=== PATIENT | female | born 1960 | race Caucasian/White ===

== ENCOUNTER 2020-05-29 06:12 | Day surgery (SDC) | payer OTHER ==
--- NOTE | 2020-05-23 13:30 | HP ---
Admitting History and Physical - Primary Care Physician PCP: Jen Antoine - Admission Chief Complaint: Left breast cancer History of Present Illness: 52 year old postmenapausal female with strong F/H breast cancer who recenly had screening mammogram which showed architectual distortion left upper outer quadrant. Birad4. US failed to show area of concern but showed left breast stable mass at 12:00 birad2. Stereotactic core bx 03/2020 showed invasive ductal carcinoma ER+/TN+HER2-.Breast MRI showed localized left breast cancer [address] 04/2020stable nodule and resolution of some nodules /scattered emphysema, F/U one year. History Source: Patient Limitations to Obtaining History: No Limitations - Past Medical History Gastrointestinal: Yes: GERD - Past Surgical History Additional Past Surgical History: ocular surgery 04/2020 left breast core bx 2013 fibroadenoma - Smoking History Smoking history: Current every day smoker (one PPD x 40 yrs) Have you smoked in the past 12 months: Yes - Alcohol/Substance Use Hx Alcohol Use: Yes (social) Home Medications - Allergies Allergies/Adverse Reactions: Allergies Allergy/AdvReac Type Severity Reaction Status Date / Time No Known Allergies Allergy Verified 05/01/20 12:10 - Home Medications Home Medications (free text): vitamins and herbal meds Family Medical History Family Hx Cancer: Grandfather (paternal) (CRC 60), Father (pancreatic ca 60) Other Family History: pat aunt breast ca 70. mat aunt x 2 breast ca 50's. mat GM breast ca 90 Physical Examination Constitutional: Yes: Well Nourished Breast(s): Yes: Other (Breast are symmetrical, post bx changes left breast S/P core bx, no palpable mass or adenopthy bilaterally) Problem List - Problems (1) Breast cancer, left breast Problems reviewed: Yes Code(s): C50.912 - MALIGNANT NEOPLASM OF UNSPECIFIED SITE OF LEFT FEMALE BREAST Qualifiers: Estrogen receptor status: positive Patient sex: female Assessment/Plan Left breast wide excision, mammogram needle localization ,sentenel node biopsy ,lymphoscintogram, possible axillary node dissection, intraop Radiation
[2020-05-24 11:34] VITALS: BMI 27.4
[2020-05-29] MEDS ORDERED: MIDAZOLAM HCL 2 MG/2 ML SINGLE DOSE VIAL ONE ×2 (09:20→10:14)
[2020-05-29] MEDS ORDERED: KETOROLAC TROMETHAMINE 30 MG/1 ML VIAL ONE (09:21)
[2020-05-29] MEDS ORDERED: DEXAMETHASONE SOD PHOSPHATE 4 MG/1 ML VIAL ONE (09:21)
[2020-05-29] MEDS ORDERED: PROPOFOL 20 ML ONE ×3 (09:21→15:06)
[2020-05-29] MEDS ORDERED: ONDANSETRON 4 MG/2 ML VIAL ONE ×2 (09:21)
[2020-05-29] MEDS ORDERED: LIDOCAINE HCL/PF 2% SDV 5ML VIAL ONE (10:15)
[2020-05-29] MEDS ORDERED: BUPIVACAINE HCL/PF 0.5% (5MG/ML) 10 ML VIAL ONE (11:54)
[2020-05-29] MEDS ORDERED: ISOSULFAN BLUE 10 MG/ML VIAL SQ ONE (11:54)
[2020-05-29] MEDS ORDERED: LIDOCAINE HCL 1%, 10 MG/ML (20ML VIAL) ONE (11:54)
[2020-05-29] MEDS ORDERED: PHENYLEPHRINE HCL 10 MG/1 ML SINGLE DOSE VIAL ONE (12:31)
[2020-05-29] MEDS ORDERED: ONDANSETRON 4 MG/2 ML VIAL IVPUSH PRN ×2 (14:11→14:47)
[2020-05-29] MEDS ORDERED: KETOROLAC TROMETHAMINE 30 MG/1 ML VIAL IVPUSH PRN (14:11)
[2020-05-29] MEDS ORDERED: DEXTROSE 5%-0.45% SALINE 1,000 ML IV SCH (14:15)
[2020-05-29] MEDS ORDERED: PROMETHAZINE HCL 25 MG/1 ML VIAL IVPUSH PRN (14:47)
[2020-05-29] MEDS ORDERED: oxyCODONE HCL 5 MG TABLET PO PRN ×2 (14:47)
[2020-05-29 16:42] VITALS: BP 118/76; PULSE 80; TEMP 98
--- NOTE | 2020-05-30 11:51 | OP ---
DATE OF OPERATION: 05/29/2020 PREOPERATIVE DIAGNOSIS: Left breast cancer. POSTOPERATIVE DIAGNOSIS: Left breast cancer. PROCEDURE: Post-lumpectomy intraoperative radiation therapy for left breast cancer. ATTENDING SURGEON: Jen Antoine MD CARTOGRAPHY/MAPPING TECHNICIAN/RADIATION ONCOLOGIST: Eitan Ortega MD ANESTHESIA: General. COMPLICATIONS: None. INDICATIONS: The patient is a 59-year-old woman with clinical stage IA T1c N0 M0, well differentiated invasive ductal carcinoma, ER/ME positive, HER-2/benji negative of the left breast, who has elected breast conservation therapy and agrees to proceed with post-lumpectomy intraoperative radiation therapy. OPERATIVE PROCEDURE: Dr. Antoine performed left lumpectomy and sentinel lymph node biopsy which he has dictated. After excision of additional margins, the lumpectomy cavity was prepared and sized for a 4.5-cm diameter spherical applicator which was then placed into the operative cavity at the 2 o'clock aspect of the left breast. The surrounding breast tissues were cinched around the applicator with a Vicryl purse-string suture. I performed a clinical and ultrasound simulation to ensure that the applicator was located within the operative bed with close apposition of the surrounding breast tissues to the surface of the applicator. In addition, adequate distance between the applicator and chest wall and between the applicator and skin was ensured by placement of saline-soaked Ray-Gayle gauze between the skin and breast tissue. Ultrasound measurements confirmed a minimum skin to applicator separation of 2 cm at the 3 o'clock aspect of the applicator. Shielding material was placed over the breast to reduce scatter radiation. The system was double checked with appropriate physics quality assurance monitor body measures. The patient received a total dose of 20 Gy prescribed to 0 mm from the applicator surface using 50-kV x-rays from the Intrabeam source. The total time required for the treatment was 35 minutes 38 seconds at a dose rate of 0.562 Gy per minute. When the treatment was completed, survey of the patient and room confirmed that the Intrabeam source was off. There were no complications or unplanned interruptions. The surgical team removed the radiation applicator from the patient and completed the surgery. DISPOSITION: Patient will be transferred to the recovery room in stable condition following surgery. EITAN ORTEGA M.D. [id number] cc: Jen Antoine MD MTDD
--- NOTE | 2020-05-30 17:05 | OP ---
DATE OF OPERATION: 05/29/2020 PREOPERATIVE DIAGNOSIS: Left breast cancer. POSTOPERATIVE DIAGNOSIS: Left breast cancer. PROCEDURE: Left breast mammographically localized partial mastectomy with left axillary sentinel node biopsy and intraoperative radiation. ANESTHESIA: General . ATTENDING SURGEON: Kiran Antoine MD PERSONAL BANKING ADVISOR: SONYA Potter ESTIMATED BLOOD LOSS: Minimal. COMPLICATIONS: None. OPERATIVE REPORT: Patient was made aware of the risks and benefits of the procedure and consented. Preoperatively, she went to the radiology suite where a needle was placed next to the index lesion, and then Nuclear Medicine where radioactive tracer was injected into the skin. She was then placed in a supine position on the operating room table, and after general anesthesia was induced, the patient was intubated. Isosulfan blue 1%, 3.0 mL, was locally infiltrated into the peritumoral tissues. After waiting approximately 10 minutes, with gentle manual compression a curvilinear incision was made in the left axilla. However, at this time there was some concern over her EKG surveillance, and the prep had to be removed with the dressings while that was fixed. Once that was fixed, the patient reprepped and draped and the procedure continued. Using electrocautery, tissues were dissected down to the left axilla. Using blunt and sharp dissection, tissues in the axilla revealed several blue and hot lymph nodes. These were surgically excised and submitted for permanent section. The wound was copiously irrigated with normal saline, hemostasis maintained by electrocautery. The wound was then closed with deep 3-0 Vicryl followed by running subcuticular 4-0 Monocryl. The breast was then approached. A curvilinear incision was then made using electrocautery. Thick skin flaps were made to the wire. The needle was withdrawn through the puncture site and the wire through the wound. Tissues around the wire were sharply excised and submitted with a short suture superior, long suture lateral. Specimen radiograph confirmed the presence of the index lesion and clip. Additional segments were taken superior, inferior, medial, lateral, deep, and anterior, with clips at the new margin. The wound was copiously irrigated with normal saline, hemostasis maintained by electrocautery. A 4.5-cm probe was then placed into the cavity, and the tissue was apposed to it using a pursestring suture of No. 1 Vicryl. Intraoperative ultrasound showed that the distance from the skin to the probe was greater than 2 cm in all quadrants. Saline-soaked gauze was used to protect the skin, and radiopaque material was placed over the chest wall. Thirty-five minutes of intraoperative radiation was then administered. The probe, gauze, and sutures were then removed, and the wound was again copiously irrigated and closed with deep 2-0 Vicryl followed by deep dermal 3-0 Vicryl followed by running subcuticular 4-0 Monocryl. Dermabond, sterile dressing, and a compression bra were then applied, and the patient, having tolerated the procedure, was transferred to the recovery room in excellent condition. She woke up without difficulty and no sequelae. KIRAN ANTOINE M.D. [id number]
--- NOTE | 2020-06-05 10:17 | PATH ---
Surgical Pathology Report Patient Name: JOVITA BATES [facility]. Rec. #: [id number] /Age/Gender: 1960 (Age: 59) / F Account: [id number] Location: [facility] AMBUL[facility]ORY Taken: 05/29/2020 Received: 05/29/2020 Reported: 06/05/2020 Physicians: Jen Antoine M.D. Specimen(s) Received A: LEFT AXILLARY SENTINEL NODES B: LEFT BREAST WIDE EXCISION C: LEFT BREAST ANTERIOR MARGIN D: LEFT POSTERIOR MARGIN E: LEFT BREAST LATERAL MARGIN F: LEFT BREAST MEDIAL MARGIN G: LEFT BREAST SUPERIOR MARGIN H: LEFT BREAST INFERIOR MARGIN Clinical History Invasive Ca Final Diagnosis A. lymph nodes, left axillary sentinel, excision: Five lymph nodes, negative for metastatic carcinoma (0/5). B. breast, left, wide excision: Invasive ductal carcinoma, well differentiated (tubule score: 1/3, nuclear grade: 2/3, mitotic score: 1/3, total score: 4/9; Maik grade 1). Invasive carcinoma measures 7 mm in greatest dimension microscopically AND SHOWS prominent associated calcifications. ductal carcinoma in situ (DCIS), Cribriform and micropapillary type, intermediate nuclear grade with associated calcifications. Invasive carcinoma is close to (< 1 mm) the posterior margin and at 2 mm from the ANTERIOR AND inferior margins. DCIS is at 1 mm from the closest (POSTERIOR, anterior AND INFERIOR margins). see specimens C-h for final margins. No lymphovascular invasion is identified. Prior biopsy site changes are present. Pathologic stage (pTNM): pT1b pN0. see also invasive carcinoma Case summary below. C. breast, left, anterior margin, excision: Benign breast tissue. D. breast, left, posterior margin, excision: Benign breast tissue. E. breast, left, lateral margin, excision: Benign breast tissue. F. breast, left, medial margin, excision: Benign breast tissue. G. breast, left, superior margin, excision: Benign breast tissue. H. breast, left, inferior margin, excision: Benign breast tissue. Comments Breast Invasive Carcinoma: Surgical Pathology Case Summary (Based on AJCC TNM 8 th edition) Procedure _X_ Excision (less than total mastectomy) Specimen Laterality _X_ Left Tumor Size _X_ Greatest dimension of largest invasive focus >1 mm (millimeters): 7 mm Histologic Type _X_ Invasive carcinoma of no special type, NOS (ductal) Histologic Grade ([place] Histologic Score) Glandular (Acinar)/Tubular Differentiation _X_ Score 1 (>75% of tumor area forming glandular/tubular structures) Nuclear Pleomorphism _X_ Score 2 Mitotic Rate _X_ Score 1 Overall Grade _X_ Grade 1 (scores of 3, 4, or 5) Tumor Focality _X_ Single focus of invasive carcinoma Ductal Carcinoma In Situ (DCIS) _X_ DCIS is present in specimen _X_ Negative for extensive intraductal component (EIC) Tumor Extension Skin _X_ Skin is not present. Skeletal Muscle _X_ No skeletal muscle is present. Margins Invasive Carcinoma Margins _X_ Uninvolved by invasive carcinoma Distance from closest margin (millimeters): < 1 mm from posterior margin in wide excision B; final posterior margin D is negative for carcinoma. DCIS Margins _X_ Uninvolved by DCIS Distance from closest margin (millimeters): 1 mm from posterior, anterior and inferior margins; final posterior (D), anterior (C) and inferior (H) margins are negative for DCIS. Regional Lymph Nodes _X_ Uninvolved by tumor cells Number of Lymph Nodes Examined: 5 Number of [place] Nodes Examined: 5 Treatment Effect in the Breast _X_ No known presurgical therapy Treatment Effect in the Lymph Nodes _X_ No lymph node metastases and no fibrous scarring or histiocytic aggregates in the nodes. Lymphovascular Invasion _X_ Not identified Pathologic Stage Classification (pTNM, AJCC 8th Edition) Primary Tumor (Invasive Carcinoma) (pT) _X_ pT1b: Tumor >5 mm but =10 mm in greatest dimension Regional Lymph Nodes (pN) Category (pN) _X_ pN0: No regional lymph node metastasis identified or ITCs only Biomarker Studies Results of ER and OH studies performed on prior biopsy ([id number]) at [facility] are as follows: ER (clone [id number] mouse monoclonal antibody by [employer]): _X_ Positive: 100 % nuclear staining with strong intensity. PgR (clone16 mouse monoclonal antibody by [employer]): _X_ Positive: 95 % nuclear staining with strong intensity. Results of Her2 (IHC) & Ki-67 studies performed on prior biopsy ([id number]) at [place], [place] ([id number]) are as follows: Her2 IHC (EP3 from [employer], formerly known as [id number], using [employer] Polymer Refine detection kit): 1+ (Negative). Ki67:~5% (low proliferative index). Electronically Signed Mary Xie M.D. Gross Description A. Received in formalin labeled "left axillary sentinel node," are 5 conteh lymph nodes ranging from 0.6-1.9 cm in greatest dimension. The lymph nodes are entirely submitted in 5 cassettes as follows: 1-2-one whole lymph node each; 3-5-one bisected lymph node each. B. Received in formalin, labeled "left wide excision," is a 2.7 x 2.2 x 1.7 cm. conteh-yellow, irregular, portion of fibroadipose tissue. There is no needle localization wire present. There is a short suture marking the superior aspect and a long suture marking the lateral aspect, per the surgeon. There is no skin or nipple present. The specimen is inked as follows: superior and lateral blue; inferior green; medial yellow; anterior red; posterior black. The specimen is serially sectioned from medial to lateral. Sectioning reveals a 0.9 x 0.9 x 0.7 cm conteh, indurated mass abutting the anterior margin. The mass is 0.3 cm from the medial margin and focally 0.3 cm from the posterior margin. The specimen is entirely and sequentially submitted in 7 cassettes with the medial margin in cassette 1, the lateral margin in cassette 7 and the mass in cassettes 2-4. Time to formalin fixation: 1 minute Total formalin fixation time: Approximately 29 hours. C. Received in formalin labeled "left breast anterior margin," is a 1.8 x 0.9 x 0.6 cm portion of fibroadipose tissue with a clip marking the new margin, per the surgeon. The new margin is inked black and the specimen is serially sectioned. The specimen is entirely submitted in 2 cassettes. D. Received in formalin labeled "left breast posterior margin," is a 2.3 x 1.7 x 0.4 cm portion of fibroadipose tissue with a suture marking the new margin, per the surgeon. The new margin is inked black and the specimen is serially sectioned. The specimen is entirely submitted in 3 cassettes. E. Received in formalin labeled "left breast lateral margin," is a 2.2 x 1.8 x 0.4 cm portion of fibroadipose tissue with a clip marking the new margin, per the surgeon. The new margin is inked black and the specimen is serially sectioned. The specimen is entirely submitted in 3 cassettes. F. Received in formalin labeled "left breast medial margin," is a 2.8 x 2.0 x 0.8 cm portion of fibroadipose tissue with a clip marking the new margin, per the surgeon. The new margin is inked black and the specimen is serially sectioned. The specimen is entirely submitted in 3 cassettes. G. Received in formalin labeled "left breast superior margin," is a 1.5 x 1.3 x 0.6 cm portion of fibroadipose tissue with a clip marking the new margin, per the surgeon. The new margin is inked black and the specimen is serially sectioned. The specimen is entirely submitted in 2 cassettes. H. Received in formalin labeled "left breast inferior margin," is a 1.7 x 1.2 x 0.4 cm portion of fibroadipose tissue with a clip marking the new margin, per the surgeon. The new margin is inked black and the specimen is serially sectioned. The specimen is entirely submitted in 2 cassettes. 05/30/2020 saudi05/30/2020
== END 2020-05-29 16:42 | disposition home or self-care (01) ==
LOC: FASU 06:12
PROVIDERS: ATTEND Surgery Surgical Oncology
PROC: 0HBU0ZZ Excision of Left Breast, Open Approach (ICD-10-PCS; principal; 2020-05-29 10:30)
PROC: DMY07ZZ Contact Radiation of Left Breast (ICD-10-PCS; 2020-05-29 10:30)
DX: C50.412 Malignant neoplasm of upper-outer quadrant of left female breast (principal)
CPT/HCPCS: 19281; 76098-TC-FY; 76641-TC-50; 77290; 77300; 77316; 77332; 77370-TC; 77424; 78195-TC; 88307-TC; 94760; A9541; C9726